=== PATIENT | female | born 1995 | race Caucasian/White ===

== ENCOUNTER → 2016-10-20 | Outpatient (CLI) | payer OTHER ==
[2016-10-20 15:05] LABS: Glucose 3 Hour, Gest 84 mg/dL
== END | disposition home or self-care (01) ==
LOC: LABWHC1 10:53
PROVIDERS: ATTEND Obstetrics & Gynecology
DX: O24.419 Gestational diabetes mellitus in pregnancy, unspecified control (principal); Z3A.00 Weeks of gestation of pregnancy not specified
CPT/HCPCS: 36415; 82951; 82952

== ENCOUNTER 2016-11-28 22:40 | Outpatient (CLI) | payer OTHER | END 2016-11-29 01:30 | disposition home or self-care (01) | LOC: FBPOP 22:40 | PROVIDERS: ATTEND Obstetrics & Gynecology | DX: O99.89 Other specified diseases and conditions complicating pregnancy, childbirth and the puerperium (principal); R10.9 Unspecified abdominal pain; Z3A.37 37 weeks gestation of pregnancy | CPT/HCPCS: 59025; G0463; 99213 ==

== ENCOUNTER 2016-12-05 18:52 | Outpatient (CLI) | payer OTHER ==
[2016-12-05 19:36] LABS: Amorphous Sediment,Urine Few /hpf; Appearance,Urine Turbid (Clear); Bilirubin,Urine Negative (Negative); Glucose,Urine (UA) Negative (Negative); Ketones,Urine Negative (Negative); Leukocyte Esterase,Urine Large (Negative); Mucus,Urine Rare /hpf; Nitrite,Urine Negative (Negative); Particle Count 15273; Protein,Urine 1+ (Negative); RBC,Urine 37 /hpf (0-5); Specific Gravity,Urine 1.018 (1.001-1.035); Squamous Epithelial Cell,Urine 7 /hpf (0-4); UA Billing (MACRO vs. MICRO) MICRO; WBC,Urine 122 /hpf (0-5)
== END 2016-12-05 20:35 | disposition home or self-care (01) ==
LOC: FBPOP 18:52
PROVIDERS: ATTEND Obstetrics & Gynecology
DX: O26.853 Spotting complicating pregnancy, third trimester (principal); Z3A.38 38 weeks gestation of pregnancy; R35.0 Frequency of micturition
CPT/HCPCS: 59025; 81001; G0463; 99213

== ENCOUNTER 2016-12-09 06:15 | Inpatient (IN) | payer OTHER ==
[2016-12-09] MEDS ORDERED: CARBOPROST TROMETHAMINE 250 MCG/ML 1 ML AMP IM PRN (06:28)
[2016-12-09] MEDS ORDERED: TERBUTALINE 1 MG/ML VIAL SQ PRN (06:28)
[2016-12-09] MEDS ORDERED: OXYTOCIN 10 UNIT/ML 1 ML VIAL IM PRN (06:28)
[2016-12-09] MEDS ORDERED: METHYLERGONOVINE 0.2 MG/ML 1 ML AMP IM PRN (06:28)
[2016-12-09] MEDS ORDERED: LIDOCAINE 1% (PF) 10 MG/ML (30 ML SDV) SQ PRN (06:28)
[2016-12-09] MEDS ORDERED: OXYTOCIN 30 UNITS/500 ML NS 30 UNIT in SALINE 1 500ML.BAG IV SCH (06:30)
[2016-12-09 06:37] VITALS: BMI 34.3
[2016-12-09 06:47] LABS: Basophils % (A) 0 %; CH 28.9; CHCM 33.8; Eosinophils # (A) 0.2 k/uL (0-0.7); Eosinophils % (A) 2 %; HCT 32.6 % (34.0-46.0); HDW 3.27; HGB 10.9 gm/dL (11.4-16.0); Luc % (Auto) 2; Lymphocytes # (A) 2.2 k/uL (1.0-4.8); Lymphocytes % (A) 18 %; MCH 28.8 pg (25.0-35.0); MCHC 33.5 g/dL (31.0-37.0); Mean Platelet Volume 8.8; Monocytes # (A) 0.5 k/uL (0-1.0); Monocytes % (A) 4 %; Neutrophils # (A) 9.3 k/uL (1.3-7.7); Neutrophils % (A) 74 %; RBC 3.79 m/uL (3.80-5.40); RDW 14.3 % (11.5-15.5); WBC 12.6 k/uL (3.8-10.6); WBC (Perox) 13.22
[2016-12-09] MEDS: LACTATED RINGERS 1,000 ML IV SCH ×3 (07:35→10:27)
[2016-12-09] MEDS ORDERED: SODIUM CHLORIDE 0.9% 100 ML BAG ONE (10:10)
[2016-12-09] MEDS ORDERED: BUPIVACAINE (PF) 0.25% 30 ML VIAL ONE (10:10)
[2016-12-09] MEDS ORDERED: fentaNYL (PF) 50 MCG/ML 5 ML AMP ONE (10:10)
[2016-12-09] MEDS ORDERED: BUPIVACAINE (PF) 0.25% 25 ML, fentaNYL (PF) 200 MCG in SODIUM CHLORIDE 0.9% 71 ML EPIDURAL ONE (10:31)
[2016-12-09] MEDS ORDERED: BENZOCAINE/MENTHOL SPRAY 1 GM/SPRAY AEROSOL TOPICAL PRN (12:36)
[2016-12-09] MEDS ORDERED: SIMETHICONE 80 MG CHEWABLE PO PRN (12:36)
[2016-12-09] MEDS ORDERED: WITCH HAZEL 1 EACH MED..PAD TOPICAL PRN (12:36)
[2016-12-09] MEDS ORDERED: MEASLES-MUMPS-RUBELLA VACC/PF 12,500 UNIT/0.5 ML VIAL SQ ONE (12:36)
[2016-12-09] MEDS ORDERED: diphenhydrAMINE 50 MG CAP PO PRN (12:36)
[2016-12-09] MEDS ORDERED: LANOLIN CREAM 5 GM TUBE TOPICAL PRN (12:36)
[2016-12-09] MEDS ORDERED: Acetaminophen-Codeine 300-30mg TAB PO PRN (12:36)
[2016-12-09] MEDS ORDERED: ZOLPIDEM 5 MG TAB PO PRN (12:36)
[2016-12-09] MEDS ORDERED: ACETAMINOPHEN TAB 325 MG TAB PO PRN (12:36)
[2016-12-09] MEDS ORDERED: diphenhydrAMINE ELIXIR 25 MG/10 ML CUP PO PRN (12:36)
[2016-12-09] MEDS ORDERED: diphenhydrAMINE 50 MG/ML 1 ML VIAL IVP PRN ×2 (12:36)
[2016-12-09] MEDS ORDERED: HYDROCORTISONE 2.5% RECTAL CREAM 30 GM TUBE RECTAL PRN (12:36)
[2016-12-09] MEDS ORDERED: diphenhydrAMINE 25 MG CAP PO PRN (12:36)
--- NOTE | 2016-12-09 12:39 | P.HPOB ---
History of Present Illness H&P Date: 12/09/16 Chief Complaint: IUP term: induction of labor Socorro is a 21-year-old she 3 P1 at 39 weeks gestation arise for induction of labor. Her was completed by initial Chlamydia culture was positive it was retested and was negative. She did have a episode in the about 32 weeks where she had significant nausea and emesis however she did improve and the remainder the she had no significant problems. Pertinent labs did include A+ blood type Rh admitted was negative, rubella was low positive, RPR and hepatitis B surface antigen were negative. GBS was negative. On physical exam her vital signs are stable and afebrile. Heart regular, lungs clear, extremities without pain. Gravid uterus noted. heart tones 140s and reactive. Assessment intrauterine at term. Plan epidural for analgesia and induction of labor. Artificial rupture membranes was performed clear fluid is noted and she is dilated to 4-1/2 cm 80% effaced -2 station. Past Medical History Additional Past Medical History / Comment(s): insomnia, chronic back pain History of Any Multi-Drug Resistant Organisms: MRSA Date of last positivie culture/infection: 2008 MDRO Source:: armpit right Past Surgical History: Cholecystectomy Additional Past Surgical History / Comment(s): facial reconstruction, head Past Anesthesia/Blood Transfusion Reactions: No Reported Reaction Past Psychological History: ADD/ADHD Smoking Status: Current every day smoker Past Alcohol Use History: None Reported Past Drug Use History: None Reported - Past Family History Mother Family Medical History: No Reported History Medications and Allergies Home Medications Medication Instructions Recorded Confirmed Type Pnv with Ca,No.72/Iron/FA 1 tab PO DAILY 11/28/16 12/09/16 History [ Plus Tablet] Allergies Allergy/AdvReac Type Severity Reaction Status Date / Time amoxicillin [Amoxicillin] Allergy Rash/Hives Verified 12/09/16 07:04 Exam Osteopathic Statement: *. No significant issues noted on an osteopathic structural exam other than those noted in the History and Physical/Consult. - Vital Signs Vital signs: Vital Signs Temp Pulse Resp BP Pulse Ox 12/09/16 12:14 84 16 110/66 12/09/16 12:00 84 16 110/66 12/09/16 11:59 86 16 138/73 12/09/16 11:44 90 16 121/83 12/09/16 06:27 96.6 F L 106 H 20 118/69 100 Intake and Output 12/08/16 12/09/16 12/09/16 22:59 06:59 14:59 Other: # Voids 1 Weight 87.997 kg - OBG Physical Exam Breast: both: normal (no masses) Abdomen: bowel sounds normal, no diffuse tenderness, no bruit present, no guarding noted, no hepatomegaly, no splenomegaly, no mass Vulva: both: normal Vagina: normal moisture, no discharge Cervix: no lesion, no discharge Uterus: normal size, normal contour Adnexa: both: normal Anus/Rectum: normal perianal skin, no rectal mass, no hemorrhoids, heme negative Results Result Diagrams: 12/09/16 06:35 Abnormal Lab Results - Last 24 Hours (Table) 12/09/16 Range/Units 06:35 WBC 12.6 H (3.8-10.6) k/uL RBC 3.79 L (3.80-5.40) m/uL Hgb 10.9 L (11.4-16.0) gm/dL Hct 32.6 L (34.0-46.0) % Neutrophils # 9.3 H (1.3-7.7) k/uL
--- NOTE | 2016-12-09 12:39 | P.PROBDLV ---
Vaginal Delivery Note - . Vaginal Delivery Note: Patient progressed complete and pushing with spontaneous vaginal delivery of a viable male over a second-degree midline laceration. Following delivery of the head anterior posterior shoulders were delivered with gentle downward upper traction followed by the remainder the baby. Mouth nares were then bulb suctioned and baby was placed on mother's abdomen where the umbilical cord was clamped and cut in usual fashion. Placenta was then delivered intact Pitocin was added to the IV. scores were 9 and 9 at one and 5 minutes Elfego weight was 7 lbs. 9 oz. Midline laceration was then repaired in usual fashion with 3-0 Vicryl following 1% Xylocaine for analgesia. Mother and baby are stable on delivery.
[2016-12-09] MEDS: IBUPROFEN 600 MG TAB PO PRN ×2 (14:45→23:59)
[2016-12-09] MEDS: SENNOSIDES-DOCUSATE SODIUM 1 EACH TAB PO SCH ×2 (17:55→20:25)
[2016-12-09] MEDS: OXYTOCIN 30 UNITS/500 ML NS 30 UNIT in SALINE 1 500ML.BAG IV SCH ×2 (20:27→21:54)
[2016-12-09] MEDS: Acetaminophen-Codeine 300-30mg TAB PO PRN (21:08)
[2016-12-10] MEDS: Acetaminophen-Codeine 300-30mg TAB PO PRN (06:40)
[2016-12-10] MEDS: SENNOSIDES-DOCUSATE SODIUM 1 EACH TAB PO SCH (08:01)
--- NOTE | 2016-12-10 08:20 | P.PNOBGVD ---
Subjective - Subjective Patient reports: Reports appetite normal, Reports voiding normally, Reports pain well controlled, Reports ambulating normally : doing well Objective - Latest Vital Signs Latest vital signs: Vital Signs Temp Pulse Resp BP Pulse Ox 12/10/16 04:00 97.9 F 72 17 98/49 98 12/10/16 00:00 98.2 F 78 19 109/63 99 12/09/16 20:00 98.1 F 83 17 123/56 98 12/09/16 16:00 98.1 F 69 22 108/68 12/09/16 13:44 98.8 F 92 22 128/61 12/09/16 12:44 88 16 121/66 12/09/16 12:29 81 16 116/61 12/09/16 12:14 84 16 110/66 12/09/16 12:00 84 16 110/66 12/09/16 11:59 86 16 138/73 12/09/16 11:44 90 16 121/83 Intake and Output 12/09/16 12/10/16 12/10/16 22:59 06:59 14:59 Other: # Voids 1 1 - Exam Lungs: bilateral: normal Chest: Normal S1, Normal S2 Extremities: Present: normal Abdomen: Present: normal appearance, soft Uterus: Present: normal, firm Assessment and Plan (1) Vaginal delivery Narrative/Plan: This is day #1. Patient is resting without complaints and wishes to go home. Vital signs are stable and she is afebrile. Uterus is firm nontender she's having normal lochia. My impression is a normal post heart of course. Plan is to continue routine care and discharge home later today Current Visit: Yes Status: Acute Code(s): O80 - ENCOUNTER FOR FULL-TERM UNCOMPLICATED DELIVERY SNOMED Code(s): 584795234
--- NOTE | 2016-12-10 08:23 | P.DS ---
Providers Date of admission: 12/09/16 06:18 Expected date of discharge: 12/10/16 Attending physician: Servando Sparks Primary care physician: Janell Hodge - Discharge Diagnosis(es) (1) Vaginal delivery Current Visit: Yes Status: Acute Hospital Course: Please see dictated H&P for this patient's admission. Brief summary this is a 21-year-old 3 para 1 female 39 and one sevenths weeks gestation admitted by Dr. Corley for elective induction of labor. Patient is admitted has uncomplicated vaginal delivery viable male . Please see dictated delivery note. day 1 patient without complaints and wishes to go home. Patient's felt be stable for discharge home follow up with Dr. Corley in 6 weeks. Procedures: Elective induction of labor and normal vaginal delivery Patient Condition at Discharge: Good Plan - Discharge Summary Discharge Medication List Pnv with Ca,No.72/Iron/FA [ Plus Tablet] 1 tab PO DAILY 11/28/16 [ History] Follow up Appointment(s)/Referral(s): Servando Sparks DO [Doctor of Osteopathic Medicine] - 1 Week Activity/Diet/Wound Care/Special Instructions: No intercourse or anything per vagina for 6 weeks. Please call if any fever, chills, excessive vaginal bleeding, and/or abdominal pain. Discharge Disposition: HOME SELF-CARE
[2016-12-10 08:48] VITALS: BP 102/59; PULSE 73; RESP 20; TEMP 98.2
== END 2016-12-10 13:07 | disposition home or self-care (01) | DRG 775 ==
LOC: 4FBP 06:18
PROVIDERS: ADMIT Obstetrics & Gynecology; ATTEND Obstetrics & Gynecology
PROC: 10E0XZZ Delivery of Products of Conception, External Approach (ICD-10-PCS; principal; 2016-12-09)
PROC: 0KQM0ZZ Repair Perineum Muscle, Open Approach (ICD-10-PCS; 2016-12-09)
PROC: 3E033VJ Introduction of Other Hormone into Peripheral Vein, Percutaneous Approach (ICD-10-PCS; 2016-12-09)
PROC: 10907ZC Drainage of Amniotic Fluid, Therapeutic from Products of Conception, Via Natural or Artificial Opening (ICD-10-PCS; 2016-12-09)
PROC: 3E0S3NZ Introduction of Analgesics, Hypnotics, Sedatives into Epidural Space, Percutaneous Approach (ICD-10-PCS; 2016-12-09)
PROC: 3E0134Z Introduction of Serum, Toxoid and Vaccine into Subcutaneous Tissue, Percutaneous Approach (ICD-10-PCS; 2016-12-09)
DX: O70.1 Second degree perineal laceration during delivery (principal); Z37.0 Single live birth; O99.344 Other mental disorders complicating childbirth; F17.200 Nicotine dependence, unspecified, uncomplicated; O99.334 Smoking (tobacco) complicating childbirth; F90.9 Attention-deficit hyperactivity disorder, unspecified type; Z88.0 Allergy status to penicillin; Z23 Encounter for immunization; Z16.24 Resistance to multiple antibiotics; Z3A.39 39 weeks gestation of pregnancy; Z86.14 Personal history of Methicillin resistant Staphylococcus aureus infection; Z90.49 Acquired absence of other specified parts of digestive tract
CPT/HCPCS: 85025; 88307; 90471; 90707

== ENCOUNTER 2017-05-18 21:10 | Emergency (ER) | payer OTHER ==
[2017-05-18] MEDS ORDERED: ACETAMINOPHEN TAB 325 MG TAB PO STA (21:42)
[2017-05-18 22:12] LABS: Appearance,Urine Clear (Clear); Bilirubin,Urine Negative (Negative); Glucose,Urine (UA) Negative (Negative); Ketones,Urine Negative (Negative); Leukocyte Esterase,Urine Large (Negative); Mucus,Urine Rare /hpf; Nitrite,Urine Negative (Negative); Particle Count 2039; Protein,Urine Negative (Negative); RBC,Urine 2 /hpf (0-5); Specific Gravity,Urine 1.018 (1.001-1.035); Squamous Epithelial Cell,Urine 3 /hpf (0-4); UA Billing (MACRO vs. MICRO) MICRO; Urobilinogen,Urine <2.0 mg/dL (<2.0); WBC,Urine 25 /hpf (0-5)
[2017-05-18 22:39] LABS: Basophils % (A) 0 %; CH 28.6; CHCM 34.1; Eosinophils # (A) 0.3 k/uL (0-0.7); Eosinophils % (A) 4 %; HCT 37.9 % (34.0-46.0); HDW 2.51; HGB 12.3 gm/dL (11.4-16.0); Luc # (Auto) 0.12; Luc % (Auto) 2; Lymphocytes # (A) 2.3 k/uL (1.0-4.8); Lymphocytes % (A) 33 %; MCH 27.4 pg (25.0-35.0); MCHC 32.5 g/dL (31.0-37.0); MCV 84.4 fL (80.0-100.0); Mean Platelet Volume 7.2; Monocytes # (A) 0.3 k/uL (0-1.0); Monocytes % (A) 4 %; Neutrophils % (A) 58 %; RBC 4.49 m/uL (3.80-5.40); RDW 15.1 % (11.5-15.5); WBC 6.9 k/uL (3.8-10.6); WBC (Perox) 7.02
[2017-05-18 22:52] LABS: ALT 30 U/L (9-52); AST 20 U/L (14-36); Alkaline Phosphatase 67 U/L (38-126); Anion Gap 9 mmol/L; Blood Urea Nitrogen 13 mg/dL (7-17); Calcium 9.4 mg/dL (8.4-10.2); Carbon Dioxide 20 mmol/L (22-30); Chloride 110 mmol/L (98-107); Glucose 101 mg/dL (74-99); Non-African American GFR(MDRD) >60 (>60 ml/min/1.73 sqM); Potassium 4.1 mmol/L (3.5-5.1); Sodium 139 mmol/L (137-145); Total Bilirubin 0.2 mg/dL (0.2-1.3); Total Protein 6.5 g/dL (6.3-8.2)
--- NOTE | 2017-05-18 23:17 | ED ---
Female Urogenital HPI - General Chief complaint: Urogenital Stated complaint: Female Source: patient Mode of arrival: ambulatory Limitations: no limitations - History of Present Illness Initial comments: 21-year-old female with past medical history of abnormal uterine bleeding and recent urinary tract infection treated by her [employer] presented for evaluation of superpubic abdominal pain, back pain, and left-sided flank pain. She states that the lower abdominal pain is more of a cramping and moves around into her back over the pain going up her left flank is distinctly different and acutely worsened today at 1:30 PM while at work. She states there is associated nausea however she has not been vomiting. She continues to have vaginal bleeding which is at her baseline and denies any abnormal vaginal discharge. She denies dysuria, constipation, diarrhea, chest pain, shortness breath, lightheadedness, dizziness. - Related Data Home Medications Medication Instructions Recorded Confirmed Azithromycin [Zithromax Z-pack] See Taper PO DAILY 05/18/17 05/18/17 Norethindrone 10 mg PO DAILY 05/18/17 05/18/17 Previous Rx's Medication Instructions Recorded Sulfamethox-Tmp 800-160Mg [Bactrim 1 tab PO Q12HR #28 tab 05/18/17 DS 800-160 mg] Allergies Allergy/AdvReac Type Severity Reaction Status Date / Time amoxicillin [Amoxicillin] Allergy Rash/Hives Verified 05/18/17 21:25 Review of Systems ROS Statement: Those systems with pertinent positive or pertinent negative responses have been documented in the HPI. ROS Other: All systems not noted in ROS Statement are negative. Constitutional: Reports: fever (subjective), chills Eyes: Denies: eye pain, eye discharge, vision change ENT: Denies: ear pain, throat pain Respiratory: Denies: cough, dyspnea Cardiovascular: Denies: chest pain, palpitations Endocrine: Denies: fatigue, polydipsia, polyuria Gastrointestinal: Reports: abdominal pain, nausea. Denies: vomiting, diarrhea, constipation, hematemesis, melena, hematochezia Genitourinary: Denies: urgency, dysuria, frequency Musculoskeletal: Reports: back pain. Denies: arthralgia, myalgia Skin: Denies: rash, lesions Neurological: Denies: headache, weakness Psychiatric: Denies: anxiety, depression Hematological/Lymphatic: Denies: easy bleeding, easy bruising Past Medical History Additional Past Medical History / Comment(s): insomnia, chronic back pain History of Any Multi-Drug Resistant Organisms: MRSA Date of last positivie culture/infection: 2008 MDRO Source:: armpit right Past Surgical History: Cholecystectomy Additional Past Surgical History / Comment(s): facial reconstruction, head Past Anesthesia/Blood Transfusion Reactions: No Reported Reaction Past Psychological History: ADD/ADHD Smoking Status: Current every day smoker Past Alcohol Use History: None Reported Past Drug Use History: None Reported - Past Family History Mother Family Medical History: No Reported History General Exam Limitations: no limitations General appearance: alert, in no apparent distress Head exam: Present: atraumatic, normocephalic, normal inspection Eye exam: Present: normal appearance, PERRL, EOMI. Absent: scleral icterus, conjunctival injection, periorbital swelling ENT exam: Present: normal exam, mucous membranes moist Neck exam: Present: normal inspection. Absent: tenderness, meningismus, lymphadenopathy Respiratory exam: Present: normal lung sounds bilaterally. Absent: respiratory distress, wheezes, rales, rhonchi, stridor Cardiovascular Exam: Present: regular rate, normal rhythm, normal heart sounds. Absent: systolic murmur, diastolic murmur, rubs, gallop, clicks GI/Abdominal exam: Present: soft, tenderness (suprapubic), normal bowel sounds. Absent: distended, guarding, rebound, rigid Rectal exam: Present: deferred Extremities exam: Present: normal inspection, full ROM, normal capillary refill. Absent: tenderness, pedal edema, joint swelling, calf tenderness Back exam: Present: full ROM, CVA tenderness (L). Absent: normal inspection, CVA tenderness (R) Neurological exam: Present: alert, oriented X3, CN II-XII intact Psychiatric exam: Present: normal affect, normal mood Skin exam: Present: warm, dry, intact, normal color. Absent: rash Course Vital Signs 05/18/17 05/18/17 21:21 23:29 Temperature 100.4 F H 98.7 F Pulse Rate 104 H 98 Respiratory 20 18 Rate Blood Pressure 127/64 118/70 O2 Sat by Pulse 98 98 Oximetry Medical Decision Making - Medical Decision Making 21-year-old female recently treated for urinary tract presented for evaluation of suprapubic cramping with radiation into her back and pain that radiates up her left flank. On physical examination she does have left CVA tenderness. She is also mildly febrile and given Tylenol. Labs revealed a UTI and in association with left leg tenderness and fever patient diagnosed with pyelonephritis and started on antibiotics. She was advised to take her antibiotics as prescribed and follow-up with her primary care physician or OB/ SHOP ASSISTANT. She is further advised to return to this facility if her symptoms should worsen or persist. The patient acknowledged an understanding of this information and agreed with this plan of care. - Lab Data Result diagrams: 05/18/17 22:30 05/18/17 22:30 Lab Results 05/18/17 05/18/17 05/18/17 Range/Units 20:20 20:20 22:30 WBC 6.9 (3.8-10.6) k/uL RBC 4.49 (3.80-5.40) m/uL Hgb 12.3 (11.4-16.0) gm/dL Hct 37.9 (34.0-46.0) % MCV 84.4 (80.0-100.0) fL MCH 27.4 (25.0-35.0) pg MCHC 32.5 (31.0-37.0) g/dL RDW 15.1 (11.5-15.5) % Plt Count 291 (150-450) k/uL Neutrophils % 58 % Lymphocytes % 33 % Monocytes % 4 % Eosinophils % 4 % Basophils % 0 % Neutrophils # 4.0 (1.3-7.7) k/uL Lymphocytes # 2.3 (1.0-4.8) k/uL Monocytes # 0.3 (0-1.0) k/uL Eosinophils # 0.3 (0-0.7) k/uL Basophils # 0.0 (0-0.2) k/uL Sodium (137-145) mmol/L Potassium (3.5-5.1) mmol/L Chloride (98-107) mmol/L Carbon Dioxide (22-30) mmol/L Anion Gap mmol/L BUN (7-17) mg/dL Creatinine (0.52-1.04) mg/dL Est GFR (MDRD) Af Amer (>60 ml/min/1.73 sqM) Est GFR (MDRD) Non-Af (>60 ml/min/1.73 sqM) Glucose (74-99) mg/dL Calcium (8.4-10.2) mg/dL Total Bilirubin (0.2-1.3) mg/dL AST (14-36) U/L ALT (9-52) U/L Alkaline Phosphatase (38-126) U/L Total Protein (6.3-8.2) g/dL Albumin (3.5-5.0) g/dL Lipase (23-300) U/L Urine Color Yellow Urine Appearance Clear (Clear) Urine pH 6.0 (5.0-8.0) Ur Specific [place] 1.018 (1.001-1.035) Urine Protein Negative (Negative) Urine Glucose (UA) Negative (Negative) Urine Ketones Negative (Negative) Urine Blood Negative (Negative) Urine Nitrite Negative (Negative) Urine Bilirubin Negative (Negative) Urine Urobilinogen <2.0 (<2.0) mg/dL Ur Leukocyte Esterase Large H (Negative) Urine RBC 2 (0-5) /hpf Urine WBC 25 H (0-5) /hpf Ur Squamous Epith Cells 3 (0-4) /hpf Urine Mucus Rare H (None) /hpf Urine HCG, Qual Not Detected (Not Detectd) 05/18/17 Range/Units 22:30 WBC (3.8-10.6) k/uL RBC (3.80-5.40) m/uL Hgb (11.4-16.0) gm/dL Hct (34.0-46.0) % MCV (80.0-100.0) fL MCH (25.0-35.0) pg MCHC (31.0-37.0) g/dL RDW (11.5-15.5) % Plt Count (150-450) k/uL Neutrophils % % Lymphocytes % % Monocytes % % Eosinophils % % Basophils % % Neutrophils # (1.3-7.7) k/uL Lymphocytes # (1.0-4.8) k/uL Monocytes # (0-1.0) k/uL Eosinophils # (0-0.7) k/uL Basophils # (0-0.2) k/uL Sodium 139 (137-145) mmol/L Potassium 4.1 (3.5-5.1) mmol/L Chloride 110 H (98-107) mmol/L Carbon Dioxide 20 L (22-30) mmol/L Anion Gap 9 mmol/L BUN 13 (7-17) mg/dL Creatinine 0.60 (0.52-1.04) mg/dL Est GFR (MDRD) Af Amer >60 (>60 ml/min/1.73 sqM) Est GFR (MDRD) Non-Af >60 (>60 ml/min/1.73 sqM) Glucose 101 H (74-99) mg/dL Calcium 9.4 (8.4-10.2) mg/dL Total Bilirubin 0.2 (0.2-1.3) mg/dL AST 20 (14-36) U/L ALT 30 (9-52) U/L Alkaline Phosphatase 67 (38-126) U/L Total Protein 6.5 (6.3-8.2) g/dL Albumin 4.1 (3.5-5.0) g/dL Lipase 88 (23-300) U/L Urine Color Urine Appearance (Clear) Urine pH (5.0-8.0) Ur Specific [place] (1.001-1.035) Urine Protein (Negative) Urine Glucose (UA) (Negative) Urine Ketones (Negative) Urine Blood (Negative) Urine Nitrite (Negative) Urine Bilirubin (Negative) Urine Urobilinogen (<2.0) mg/dL Ur Leukocyte Esterase (Negative) Urine RBC (0-5) /hpf Urine WBC (0-5) /hpf Ur Squamous Epith Cells (0-4) /hpf Urine Mucus (None) /hpf Urine HCG, Qual (Not Detectd) Disposition Clinical Impression: Pyelonephritis Disposition: HOME SELF-CARE Condition: Stable Instructions: Kidney Infection (ED) Additional Instructions: Please use medication as discussed. Please follow up with family doctor if symptoms have not improved over the next two days. Please return to the emergency room if your symptoms increase or worsen or for any other concerns. Prescriptions: Sulfamethox-Tmp 800-160Mg [Bactrim DS 800-160 mg] 1 tab PO Q12HR #28 tab Referrals: Janell Hodge DO [Primary Care Provider] - 1-2 days Time of Disposition: 23:51
[2017-05-18 23:31] VITALS: BP 118/70; PULSE 98; RESP 18; TEMP 98.7
== END 2017-05-19 00:08 | disposition home or self-care (01) ==
LOC: EC 21:10
DX: N12 Tubulo-interstitial nephritis, not specified as acute or chronic (principal); F17.200 Nicotine dependence, unspecified, uncomplicated; Z90.49 Acquired absence of other specified parts of digestive tract; Z87.440 Personal history of urinary (tract) infections; Z88.0 Allergy status to penicillin; Z79.3 Long term (current) use of hormonal contraceptives
CPT/HCPCS: 36415; 80053; 81001; 81025; 83690; 85025; 99284

== ENCOUNTER 2017-10-18 14:53 | Emergency (ER) | payer OTHER ==
[2017-10-18] MEDS ORDERED: ONDANSETRON 4 MG ODT STARTER PACK 2 TAB BTL PO STA (15:41)
--- NOTE | 2017-10-18 15:44 | ED ---
General Adult HPI - General Chief complaint: Upper Respiratory Infection Stated complaint: Vomiting Time Seen by Provider: 10/18/17 15:28 Source: patient, RN notes reviewed Mode of arrival: ambulatory Limitations: no limitations - History of Present Illness Initial comments: Patient is a 21-year-old female who presents emergency room today with a chief complaint of symptoms of nausea vomiting diarrhea over last 4 days. Patient does admit that she has been able to keep fluids down. Patient does admit that she has of his symptoms for the past 4 days or so has similar symptoms at home. Patient denies any other complaints or symptoms. Patient denies any recent fever, chills, shortness of breath, chest pain, back pain, numbness or tingling , dysuria or hematuria, constipation, headaches or visual changes, or any other complaints. - Related Data Home Medications Medication Instructions Recorded Confirmed Acetaminophen/Diphenhydramine 1 tab PO HS PRN 10/18/17 10/18/17 [Tylenol PM 500-25mg] Previous Rx's Medication Instructions Recorded Ondansetron Odt [Zofran ODT] 4 mg PO Q8HR PRN #20 tab 10/18/17 Allergies Allergy/AdvReac Type Severity Reaction Status Date / Time amoxicillin [Amoxicillin] Allergy Rash/Hives Verified 10/18/17 15:28 Review of Systems ROS Statement: Those systems with pertinent positive or pertinent negative responses have been documented in the HPI. ROS Other: All systems not noted in ROS Statement are negative. Past Medical History Additional Past Medical History / Comment(s): insomnia, chronic back pain History of Any Multi-Drug Resistant Organisms: MRSA Date of last positivie culture/infection: 2008 MDRO Source:: armpit right Past Surgical History: Cholecystectomy Additional Past Surgical History / Comment(s): facial reconstruction, head Past Anesthesia/Blood Transfusion Reactions: No Reported Reaction Past Psychological History: ADD/ADHD Smoking Status: Current every day smoker Past Alcohol Use History: None Reported Past Drug Use History: None Reported - Past Family History Mother Family Medical History: No Reported History General Exam - General Exam Comments Initial Comments: General: The patient is awake and alert, in no distress, and does not appear acutely ill. Eye: Pupils are equal, round and reactive to light, extra-ocular movements are intact. No nystagmus. There is normal conjunctiva bilaterally. No signs of icterus. Ears, nose, mouth and throat: There are moist mucous membranes and no oral lesions. Neck: The neck is supple, there is no tenderness or JVD. Cardiovascular: There is a regular rate and rhythm. No murmur, rub or gallop is appreciated. Respiratory: Lungs are clear to auscultation, respirations are non-labored, breath sounds are equal. No wheezes, stridor, rales, or rhonchi. Gastrointestinal: Soft, non-distended, non-tender abdomen without masses or organomegaly noted. There is no rebound or guarding present. No CVA tenderness. Bowel sounds are unremarkable. Musculoskeletal: Normal ROM, no tenderness. Strength 5/5. Sensation intact. Pulses equal bilaterally 2+. Neurological: A&O x 3. CN II-XII intact, There are no obvious motor or sensory deficits. Coordination appears grossly intact. Speech is normal. Skin: Skin is warm and dry and no rashes or lesions are noted. Psychiatric: Cooperative, appropriate mood & affect, normal judgment. Limitations: no limitations Course Vital Signs 10/18/17 15:04 Temperature 98.4 F Pulse Rate 86 Respiratory 16 Rate Blood Pressure 113/84 O2 Sat by Pulse 98 Oximetry Medical Decision Making - Medical Decision Making Patient was started on nausea medication here in the emergency room and advised to return if symptoms increase or worsen. Disposition Clinical Impression: Nausea vomiting and diarrhea Disposition: HOME SELF-CARE Condition: Good Instructions: Gastroenteritis (ED) Additional Instructions: Please use medication as discussed. Please follow-up with family doctor in the next 2 days of symptoms have not improved. Please return to emergency room if the symptoms increase or worsen or for any other concerns. Prescriptions: Ondansetron Odt [Zofran ODT] 4 mg PO Q8HR PRN #20 tab PRN Reason: Nausea Referrals: Janell Hodge DO [Primary Care Provider] - 1-2 days Time of Disposition: 15:43
[2017-10-18 23:31] VITALS: BP 113/84; PULSE 86; RESP 16; TEMP 98.4
== END 2017-10-18 16:06 | disposition home or self-care (01) ==
LOC: EC 14:53
DX: R11.2 Nausea with vomiting, unspecified (principal); R19.7 Diarrhea, unspecified; F17.200 Nicotine dependence, unspecified, uncomplicated; Z90.49 Acquired absence of other specified parts of digestive tract; Z86.14 Personal history of Methicillin resistant Staphylococcus aureus infection; Z88.0 Allergy status to penicillin
CPT/HCPCS: 99283; S0119

== ENCOUNTER 2018-03-28 10:31 | Emergency (ER) | payer OTHER ==
[2018-03-28 10:35] VITALS: TEMP 98.1
[2018-03-28] MEDS ORDERED: KETOROLAC 30 MG/ML 1 ML VIAL IVP STA (11:01)
[2018-03-28] MEDS ORDERED: SODIUM CHLORIDE 0.9% 1,000 ML IV STA ×2 (11:01)
[2018-03-28] MEDS ORDERED: ONDANSETRON 4 MG/2 ML VIAL IVP STA (11:01)
[2018-03-28 11:42] LABS: Basophils % (A) 0 %; Eosinophils # (A) 0.3 k/uL (0-0.7); Eosinophils % (A) 3 %; HCT 38.2 % (34.0-46.0); HGB 12.8 gm/dL (11.4-16.0); Lymphocytes # (A) 1.5 k/uL (1.0-4.8); Lymphocytes % (A) 15 %; MCH 27.6 pg (25.0-35.0); MCHC 33.6 g/dL (31.0-37.0); MCV 82.2 fL (80.0-100.0); Mean Platelet Volume 6.7; Monocytes # (A) 0.4 k/uL (0-1.0); Monocytes % (A) 4 %; Neutrophils # (A) 7.4 k/uL (1.3-7.7); Neutrophils % (A) 77 %; Platelet Count 332 k/uL (150-450); RBC 4.65 m/uL (3.80-5.40); RDW 13.5 % (11.5-15.5); WBC 9.7 k/uL (3.8-10.6)
[2018-03-28 11:51] LABS: ALT 35 U/L (9-52); AST 15 U/L (14-36); Albumin 4.4 g/dL (3.5-5.0); Alkaline Phosphatase 80 U/L (38-126); Amylase <30 U/L (30-110); Anion Gap 14 mmol/L; Blood Urea Nitrogen 11 mg/dL (7-17); Calcium 9.3 mg/dL (8.4-10.2); Carbon Dioxide 21 mmol/L (22-30); Chloride 107 mmol/L (98-107); Glucose 89 mg/dL (74-99); Lipase 22 U/L (23-300); Sodium 142 mmol/L (137-145); Total Bilirubin 0.5 mg/dL (0.2-1.3); Total Protein 6.9 g/dL (6.3-8.2)
[2018-03-28 11:58] LABS: Appearance,Urine Cloudy (Clear); Bacteria,Urine Few /hpf; Bilirubin,Urine Negative (Negative); Blood,Urine Negative (Negative); Color,Urine Yellow; Glucose,Urine (UA) Negative (Negative); Ketones,Urine Trace (Negative); Leukocyte Esterase,Urine Large (Negative); Mucus,Urine Few /hpf; Nitrite,Urine Negative (Negative); Protein,Urine Trace (Negative); RBC,Urine 27 /hpf (0-5); Specific Gravity,Urine 1.029 (1.001-1.035); Squamous Epithelial Cell,Urine 4 /hpf (0-4); Urobilinogen,Urine <2.0 mg/dL (<2.0); WBC,Urine 66 /hpf (0-5)
[2018-03-28 12:00] LABS: Partial Thromboplastin Time 25.4 sec (22.0-30.0); Prothrombin Time 9.8 sec (9.0-12.0)
[2018-03-28] MEDS ORDERED: SULFAMETH-TMP DS STARTER PACK 2 TAB BTL PO STA (12:29)
--- NOTE | 2018-03-28 12:29 | XR ---
EXAMINATION TYPE: XR KUB DATE OF EXAM: 03/28/2018 12:13 PM CLINICAL HISTORY: Lower abdominal pain for one week. TECHNIQUE: Single upright image of the abdomen is obtained. COMPARISON: 04/24/2012. FINDINGS: Multiple air-fluid levels are seen within the nondilated ascending colon. Scattered gas is seen in nondilated small bowel loops. Gas and fecal material is seen in nondilated colon. There is no visceromegaly, pneumoperitoneum, or abnormal calcification appreciated. Cholecystectomy clips noted within the right upper quadrant. The lung bases are clear and the osseous structures are intact. IMPRESSION: Nonobstructive bowel gas pattern. Air-fluid levels within the nondilated ascending colon could relate to colonic malabsorption/diarrhea or infectious/inflammatory colitis.
[2018-03-28] MEDS ORDERED: PHENAZOPYRIDINE 100 MG TAB PO STA (12:30)
--- NOTE | 2018-03-28 12:33 | ED ---
Abdominal Pain HPI - General Chief Complaint: Abdominal Pain Stated Complaint: Cramping Time Seen by Provider: 03/28/18 10:37 Source: patient, RN notes reviewed, old records reviewed Mode of arrival: ambulatory Limitations: no limitations - History of Present Illness Initial Comments: This Patient is a 22-year-old female chief complaint of lower abdominal cramping within her pelvis for the past 2 days. Patient states she's felt nauseous has had a few episodes of vomiting as well as diarrhea. Patient states that she has had some pain with urination as well for the past day. She denies any fever or chills. Denies any back or flank pain.Patient denies any recent fever, chills, shortness of breath, chest pain, back pain, abdominal pain , nausea vomiting, numbness or tingling, dysuria or hematuria, constipation or diarrhea, headaches or visual changes, or any other current symptoms Patient reports that her last menstrual period was one month ago. Concern for possible however Patient does have the And plan. Patient reports no vaginal discharge. - Related Data Home Medications Medication Instructions Recorded Confirmed Acetaminophen [Tylenol 8 Hour] 650 mg PO DAILY PRN 03/28/18 03/28/18 Acetaminophen/Pyrilam/Pamabrom 2 tab PO DAILY PRN 03/28/18 03/28/18 [Pamprin Multi-Symptom Tab] Ibuprofen [Motrin] 800 mg PO Q6HR PRN 03/28/18 03/28/18 Previous Rx's Medication Instructions Recorded Ketorolac [Toradol] 10 mg PO Q6HR #10 tab 03/28/18 Phenazopyridine HCl [Pyridium] 100 mg PO TID #9 tab 03/28/18 Sulfamethox-Tmp 800-160Mg [Bactrim 1 tab PO Q12HR #10 tab 03/28/18 DS 800-160 mg] Allergies Allergy/AdvReac Type Severity Reaction Status Date / Time amoxicillin [Amoxicillin] Allergy Rash/Hives Verified 03/28/18 10:46 Review of Systems ROS Statement: Those systems with pertinent positive or pertinent negative responses have been documented in the HPI. ROS Other: All systems not noted in ROS Statement are negative. Past Medical History Additional Past Medical History / Comment(s): insomnia, chronic back pain History of Any Multi-Drug Resistant Organisms: MRSA Date of last positivie culture/infection: 2008 MDRO Source:: armpit right Past Surgical History: Cholecystectomy Additional Past Surgical History / Comment(s): facial reconstruction, head Past Anesthesia/Blood Transfusion Reactions: No Reported Reaction Past Psychological History: ADD/ADHD Smoking Status: Current every day smoker Past Alcohol Use History: None Reported Past Drug Use History: None Reported - Past Family History Mother Family Medical History: No Reported History General Exam - General Exam Comments Initial Comments: 22-year-old female. Alert and oriented. No acute distress. General: Well appearing, well nourished, in no distress. Oriented x 3, normal mood and affect . Ambulating without difficulty. Skin: Good turgor, no rash, unusual bruising or prominent lesions Hair: Normal texture and distribution. HEENT: Head: Normocephalic, atraumatic, no visible or palpable masses, depressions, or scaring. Pharynx: Mucosa non-inflamed, no tonsillar hypertrophy or exudate Neck: Supple, without lesions, bruits, or adenopathy, thyroid non-enlarged and non-tender Heart: No cardiomegaly or thrills; regular rate and rhythm, no murmur or gallop Lungs: Clear to auscultation and percussion Abdomen: Bowel sounds normal, suprapubic tenderness. Back: Spine normal without deformity or tenderness, no CVA tenderness Extremities: No amputations or deformities, cyanosis, edema or varicosities, peripheral pulses intact Musculoskeletal: Normal gait and station. No misalignment, asymmetry, crepitation, defects, tenderness, masses, effusions, decreased range of motion, instability, atrophy or abnormal strength or tone in the head, neck, spine, ribs , pelvis or extremities. Neurologic: CN 2-12 normal. Sensation to pain, touch, and proprioception normal. DTRs normal in upper and lower extremities. No pathologic reflexes. Psychiatric: Oriented X3, intact recent and remote memory, judgment and insight , normal mood and affect. Limitations: no limitations Course Vital Signs 03/28/18 10:33 Temperature 98.1 F Pulse Rate 106 H Respiratory 18 Rate Blood Pressure 110/74 O2 Sat by Pulse 98 Oximetry Medical Decision Making - Medical Decision Making Patient is a 22-year-old female with suprapubic abdominal pain for one day. Plans of dysuria. Concerned for possibility of however she does have Implant. Patient's labwork was reviewed and unremarkable signs urinary tract evidence of urinary tract infection. The 66 white blood cells and 40 red blood cells. Patient was given Toradol and Zofran. She does report relief for pain. KUB shows no evidence of abnormalities and some mild inflation of the colon consistent with diarrhea. Patient will be started on Bactrim for the urinary tract infection given peridium. Discussed that symptoms continue to persist or worsen she should return to the emergency department. Discussed also the possibility of ureter kidney stone however Patient is now resting comfortable, and I do not want report a computed tomography scan on her this time. Discussed if her symptoms continue or worsen to return here. - Lab Data Result diagrams: 03/28/18 11:14 03/28/18 11:14 Lab Results 03/28/18 03/28/18 03/28/18 Range/Units 11:14 11:14 11:14 WBC 9.7 (3.8-10.6) k/uL RBC 4.65 (3.80-5.40) m/uL Hgb 12.8 (11.4-16.0) gm/dL Hct 38.2 (34.0-46.0) % MCV 82.2 (80.0-100.0) fL MCH 27.6 (25.0-35.0) pg MCHC 33.6 (31.0-37.0) g/dL RDW 13.5 (11.5-15.5) % Plt Count 332 (150-450) k/uL Neutrophils % 77 % Lymphocytes % 15 % Monocytes % 4 % Eosinophils % 3 % Basophils % 0 % Neutrophils # 7.4 (1.3-7.7) k/uL Lymphocytes # 1.5 (1.0-4.8) k/uL Monocytes # 0.4 (0-1.0) k/uL Eosinophils # 0.3 (0-0.7) k/uL Basophils # 0.0 (0-0.2) k/uL PT (9.0-12.0) sec INR (<1.2) APTT (22.0-30.0) sec Sodium 142 (137-145) mmol/L Potassium 4.0 (3.5-5.1) mmol/L Chloride 107 (98-107) mmol/L Carbon Dioxide 21 L (22-30) mmol/L Anion Gap 14 mmol/L BUN 11 (7-17) mg/dL Creatinine 0.52 (0.52-1.04) mg/dL Est GFR (CKD-EPI)AfAm >90 (>60 ml/min/1.73 sqM) Est GFR (CKD-EPI)NonAf >90 (>60 ml/min/1.73 sqM) Glucose 89 (74-99) mg/dL Calcium 9.3 (8.4-10.2) mg/dL Total Bilirubin 0.5 (0.2-1.3) mg/dL AST 15 (14-36) U/L ALT 35 (9-52) U/L Alkaline Phosphatase 80 (38-126) U/L Total Protein 6.9 (6.3-8.2) g/dL Albumin 4.4 (3.5-5.0) g/dL Amylase <30 L (30-110) U/L Lipase 22 L (23-300) U/L Urine Color Urine Appearance (Clear) Urine pH (5.0-8.0) Ur Specific [place] (1.001-1.035) Urine Protein (Negative) Urine Glucose (UA) (Negative) Urine Ketones (Negative) Urine Blood (Negative) Urine Nitrite (Negative) Urine Bilirubin (Negative) Urine Urobilinogen (<2.0) mg/dL Ur Leukocyte Esterase (Negative) Urine RBC (0-5) /hpf Urine WBC (0-5) /hpf Ur Squamous Epith Cells (0-4) /hpf Urine Bacteria (None) /hpf Urine Mucus (None) /hpf Urine HCG, Qual Not Detected (Not Detectd) 03/28/18 03/28/18 Range/Units 11:14 11:14 WBC (3.8-10.6) k/uL RBC (3.80-5.40) m/uL Hgb (11.4-16.0) gm/dL Hct (34.0-46.0) % MCV (80.0-100.0) fL MCH (25.0-35.0) pg MCHC (31.0-37.0) g/dL RDW (11.5-15.5) % Plt Count (150-450) k/uL Neutrophils % % Lymphocytes % % Monocytes % % Eosinophils % % Basophils % % Neutrophils # (1.3-7.7) k/uL Lymphocytes # (1.0-4.8) k/uL Monocytes # (0-1.0) k/uL Eosinophils # (0-0.7) k/uL Basophils # (0-0.2) k/uL PT 9.8 (9.0-12.0) sec INR 1.0 (<1.2) APTT 25.4 (22.0-30.0) sec Sodium (137-145) mmol/L Potassium (3.5-5.1) mmol/L Chloride (98-107) mmol/L Carbon Dioxide (22-30) mmol/L Anion Gap mmol/L BUN (7-17) mg/dL Creatinine (0.52-1.04) mg/dL Est GFR (CKD-EPI)AfAm (>60 ml/min/1.73 sqM) Est GFR (CKD-EPI)NonAf (>60 ml/min/1.73 sqM) Glucose (74-99) mg/dL Calcium (8.4-10.2) mg/dL Total Bilirubin (0.2-1.3) mg/dL AST (14-36) U/L ALT (9-52) U/L Alkaline Phosphatase (38-126) U/L Total Protein (6.3-8.2) g/dL Albumin (3.5-5.0) g/dL Amylase (30-110) U/L Lipase (23-300) U/L Urine Color Yellow Urine Appearance Cloudy H (Clear) Urine pH 6.0 (5.0-8.0) Ur Specific [place] 1.029 (1.001-1.035) Urine Protein Trace H (Negative) Urine Glucose (UA) Negative (Negative) Urine Ketones Trace H (Negative) Urine Blood Negative (Negative) Urine Nitrite Negative (Negative) Urine Bilirubin Negative (Negative) Urine Urobilinogen <2.0 (<2.0) mg/dL Ur Leukocyte Esterase Large H (Negative) Urine RBC 27 H (0-5) /hpf Urine WBC 66 H (0-5) /hpf Ur Squamous Epith Cells 4 (0-4) /hpf Urine Bacteria Few H (None) /hpf Urine Mucus Few H (None) /hpf Urine HCG, Qual (Not Detectd) - Radiology Data Radiology results: report reviewed Objective bowel gas pattern. Air-fluid levels and a dilated ascending colon consistent with my observation diarrhea or infectious colitis. Disposition Clinical Impression: UTI (urinary tract infection) Disposition: HOME SELF-CARE Condition: Good Instructions: Urinary Tract Infection in Women (ED) Additional Instructions: Follow-up with primary care physician. Take the medication as prescribed. Return to emergency department if any alarming signs or symptoms occur. Prescriptions: Ketorolac [Toradol] 10 mg PO Q6HR #10 tab Phenazopyridine HCl [Pyridium] 100 mg PO TID #9 tab Sulfamethox-Tmp 800-160Mg [Bactrim DS 800-160 mg] 1 tab PO Q12HR #10 tab Is patient prescribed a controlled substance at d/c from ED?: No When asked, does pt state using other controlled substances?: No If prescribed controlled substance>3 days was MAPS reviewed?: No If opioid is for acute pain is fill amount 7 days or less?: No If Rx opioid, was Start Talking consent form obtained?: No Referrals: Janell Hodge DO [Primary Care Provider] - 1-2 days Time of Disposition: 12:30
[2018-03-28 13:28] VITALS: BP 112/80; PULSE 70; RESP 16
== END 2018-03-28 13:27 | disposition home or self-care (01) ==
LOC: EC 10:31
DX: N39.0 Urinary tract infection, site not specified (principal); F17.200 Nicotine dependence, unspecified, uncomplicated; Z86.14 Personal history of Methicillin resistant Staphylococcus aureus infection; Z90.49 Acquired absence of other specified parts of digestive tract; Z88.0 Allergy status to penicillin
CPT/HCPCS: 99284; 96374; 96375; 96361; 36415; 80053; 82150; 83690; 85025; 85610; 85730; 81001; 81025; 87086; 74018; J2405; J1885